=== PATIENT | male | born 1950 | race Caucasian/White ===

== ENCOUNTER → 2019-12-01 | Outpatient (CLI) | payer MEDICARE ==
--- NOTE | 2019-12-01 16:43 | RAD ---
Right foot 3 views. HISTORY: Right foot pain, gout 3 views were taken of the right foot. 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 There is no fracture. There is no bony destructive process. There is flexion of the second toe. IMPRESSION: 1. 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 2. Flexion deformity of the second toe. 3. No other fracture or acute osseous abnormality noted. Electronically signed by: Salo Tamez MD (12/01/2019 4:40 PM) [id number]
== END | disposition home or self-care (01) ==
LOC: RAD 15:30
PROVIDERS: ATTEND Family Medicine
DX: M19.071 Primary osteoarthritis, right ankle and foot (principal); M21.271 Flexion deformity, right ankle and toes; M10.49 Other secondary gout, multiple sites
CPT/HCPCS: 73630